=== PATIENT | male | born 2000 | race Caucasian/White ===

== ENCOUNTER → 2022-12-07 15:14 | Outpatient (CLI) | payer BC, SELFPAY ==
[2022-12-07 17:34] LABS: Urine N gonorrhoeae NOT DETECTED
[2022-12-07 17:44] LABS: Urine Chlamydia NOT DETECTED
== END ==
PROVIDERS: Visit Provider Nurse Practitioner Family
DX: Z11.3 Encounter for screening for infections with a predominantly sexual mode of transmission (principal)
CPT/HCPCS: 87491; 87591

== ENCOUNTER → 2023-01-02 10:30 | Outpatient (CLI) | payer BC, SELFPAY ==
[2023-01-02 20:02] LABS: Hepatitis B Surface Antigen NEGATIVE s/c (NEGATIVE)
[2023-01-02 20:16] LABS: HIV 1 & 2 Ab/Ag 4th Gen Combo NEGATIVE (NEGATIVE); Hep C Virus Ab w/Reflex Quant NEGATIVE s/c (NEGATIVE)
[2023-01-04 04:58] LABS: RPR Screen Non Reactive (Non Reactive)
[2023-01-21 08:57] LABS: HSV1IGG 1.92
[2023-01-21 08:58] LABS: HSV 2 IGG AB < 0.91
== END ==
PROVIDERS: Nurse Practitioner Family; PCP Family Medicine; Visit Provider Family Medicine
DX: Z11.3 Encounter for screening for infections with a predominantly sexual mode of transmission (principal)
CPT/HCPCS: 86592; 86695; 86696; 86803; 87340; 87389